=== PATIENT | male | born 1960 | race Caucasian/White ===

== ENCOUNTER 2018-12-11 14:51 | Emergency (ER) | payer OTHER ==
[~2018-12-11] VITALS: Ht 180.3 cm; Wt 106.6 kg
[2018-12-11] MEDS ORDERED: HYDROCHLOROTHIA25 MG (14:57)
[2018-12-11] MEDS ORDERED: IRBESARTAN150 MG (14:57)
[2018-12-11] MEDS ORDERED: INTESTINEX680 M1 PO (21:16)
[2018-12-11] MEDS ORDERED: CELEBREX100 MG PO (21:16)
[2018-12-11] MEDS ORDERED: BACTRIM DS TAB1 EACH PO (21:16)
== END 2018-12-11 21:51 ==
LOC: ER 14:51
DX: L03.114 Cellulitis of left upper limb (principal)